=== PATIENT | female | born 2000 | race Caucasian/White ===

== ENCOUNTER 2019-10-03 22:53 | Emergency (ER) | payer BC ==
[~2019-10-03] VITALS: Ht 157.5 cm; Wt 60.3 kg
[2019-10-03 23:36] VITALS: BP_SYST 132
--- NOTE | 2019-10-03 23:45 | NUR ---
Pt placed to ER waiting room in stable condition with family member. Urine specimen cup provided.
--- NOTE | 2019-10-04 01:10 | NUR ---
Patient to ER bed 7 to gown for evaluation. Side rails up.
--- NOTE | 2019-10-04 01:25 | NUR ---
Note sy in EDM - 10/04/19 at 0139 by [email or web address] Pt c/o "feeling weird." Reports she feels cold, dizzy with cough. She took a fat burner pill at 1400. Pt states she went to an urgent care on Monday and was recently diagnosed with bronchiospasms and was given an RX of methylpredisolone. Denies n/v/d or fever. No other complaints/injuries noted. Will cont. to monitor. Went to urgent care on dx Bronchiospasms RX MethylPrednisolone.
--- NOTE | 2019-10-04 01:30 | NUR ---
Note sy in ED - 10/04/19 at 0420 by [email or web address] Patient to bed 7 to [facility] for evaluation. Side rails up.
--- NOTE | 2019-10-04 01:30 | NUR ---
Note sy in ED - 10/04/19 at 0420 by [email or web address] Patient to bed 7 to [facility] for evaluation. Side rails up.
[2019-10-04 02:29] LABS: BASOPHILS # (AUTO) 0.1 K/uL (0.0-0.2); BASOPHILS % (AUTO) 0.5 % (0.0-2.0); EOSINOPHILS # (AUTO) 0.3 K/uL (0.0-0.4); EOSINOPHILS % (AUTO) 2.3 % (0.0-4.0); HEMATOCRIT 39.4 % (36-48); HEMOGLOBIN 13.5 g/dL (12.0-16.0); LYMPHOCYTES # (AUTO) 2.3 K/uL (1.0-5.5); LYMPHOCYTES % (AUTO) 20.9 % (20.5-51.5); MEAN CORPUSCULAR HEMOGLOBIN 30 pg (27-31); MEAN CORPUSCULAR HGB CONC 34 % (32-36); MEAN CORPUSCULAR VOLUME 89 fL (79.0-98.0); MONOCYTES # (AUTO) 0.7 K/uL (0.0-1.0); MONOCYTES % (AUTO) 6.5 % (1.7-9.3); NEUTROPHILS # (AUTO) 7.6 K/uL (1.8-7.7); NEUTROPHILS % (AUTO) 69.8 % (40.0-70.0); PLATELET COUNT (AUTO) 287 K/uL (130-430); RED BLOOD CELL COUNT(AUTO) 4.45 MIL/uL (4.2-6.2); RED CELL DISTRIBUTION WIDTH 12.8 % (9.0-15.0); WHITE BLOOD COUNT (AUTO) 10.9 K/uL (4.5-11.0)
--- NOTE | 2019-10-04 02:30 | NUR ---
ER at bedside examining patient.
[2019-10-04 02:31] LABS: BILIRUBIN,URINE NEGATIVE (NEGATIVE); BLOOD, URINE NEGATIVE (NEGATIVE); CLARITY/URINE CLEAR (CLEAR); COLOR,URINE YELLOW (YELLOW); GLUCOSE,URINE NEGATIVE (NEGATIVE); KETONES,URINE NEGATIVE (NEGATIVE); LEUKOCYTE ESTERASE ,URINE NEGATIVE (NEGATIVE); NITRITE, URINE NEGATIVE (NEGATIVE); PROTEIN URINE NEGATIVE (NEGATIVE); UROBILINOGEN,URINE 0.2 (0.2-1.0)
[2019-10-04 02:43] LABS: CALCIUM 9.2 mg/dL (8.4-11.0); CREATININE 0.73 mg/dL (0.55-1.30); POTASSIUM 3.6 mmol/L (3.5-5.1)
[2019-10-04 02:50] LABS: ALBUMIN 4.3 g/dL (3.4-4.8); TOTAL BILIRUBIN 0.3 mg/dL (0.0-1.0)
[2019-10-04 04:06] VITALS: BP_SYST 132
--- NOTE | 2019-10-04 04:07 | NUR ---
Patient given written and verbal discharge instructions and verbalizes understanding. ER MD discussed with patient the results and treatment provided. Patient in stable condition. ID arm band removed. Rx of Epipen given. Patient educated on pain management and to follow up with PMD. Pain Scale 0. Opportunity for questions provided and answered. Medication side effect fact sheet provided.
== END 2019-10-04 04:07 | disposition home or self-care (01) ==
LOC: SED 22:53
DX: R00.2 Palpitations (principal); R42 Dizziness and giddiness; T48.6X5A Adverse effect of antiasthmatics, initial encounter; Y92.89 Other specified places as the place of occurrence of the external cause
CPT/HCPCS: 36415; 71045; 80053; 81003; 81025; 85025; 93005; 99284